=== PATIENT | female | born 1985 | race Caucasian/White ===

== ENCOUNTER 2018-05-02 07:56 | Inpatient (IN) | payer BC ==
[2018-05-02] MEDS ORDERED: Misoprostol TAB* 100 MCG PO ONE ×2 (10:08→14:58)
[2018-05-02] MEDS ORDERED: Misoprostol TAB* 100 MCG ONE (10:39)
--- NOTE | 2018-05-02 11:19 | HP ---
General Information - General Information Maternal Age: 32 Grav: 0 Para: 2 SAB: 0 IEA: 0 Estimated Due Date: 05/06/18 Determined By: LMP Gestational Age in Weeks and Days: 39 Weeks and 3 Days Maternal Blood Type and Rh: O Positive - Results this Serology/RPR Result: Non-Reactive Rubella Result: Immune HBsAg Result: Negative HIV Result: Negative GBS Culture Result: Negative Past Medical History Delivery History: See Records - primiparous, hx 2 1st trimester miscarriages Pertinent Past Medical History: Non-Contributory Pertinent Past Surgical History: See Records - D&C 2015, ACL repairs 2001, 2004 Pertinent Family History: Non-Contributory - Antepartal Records Antepartal Records: Reviewed, Uncomplicated - hx low-lying placenta, resolved Review of Systems Constitutional: Comfortable CV Complaint: No Respiratory: Shortness of Breath: No Gastrointestinal: No Nausea/Vomiting, Normal Bowel Movement Genitourinary: Leaking Fluid, No Dysuria, No Bleeding Musculoskeletal: No Complaint Neurological: No Headache, No Visual Changes Movement: Normal Exam Allergies/Adverse Reactions: Allergies No Known Allergies Allergy (Verified 05/02/18 08:43) Vital Signs 05/02/18 08:10 Temperature 98.5 F Pulse Rate 94 Respiratory 17 Rate Blood Pressure 131/71 (mmHg) O2 Sat by Pulse 99 Oximetry Lab Values - Entire Visit: Laboratory Tests 05/02/18 08:20 Vag Amniotic Fld Detect Positive - Measurements Height: 5 ft 8 in Weight: 104.326 kg Weight in lbs: 230.562182 Body Mass Index (BMI): 34.9 Pre- Weight: 88.451 kg Weight Gained This : 34.999 lbs and 0 ozs - Exam Abdomen: No Upper Quadrant Pain Breast: Breast Exam Deferred CVA: No CVA Tenderness Extremities: No Edema Heart: Normal Rhythm/Heart Sounds HEENT: No Significant Findings Lungs: Clear Bilaterally Rectal: Rectal Exam Deferred Reflexes: DTR 2+ Thyroid: No Thyromegaly - Abdominal Exam Abdomen Exam: Non-Tender, Fundal Height Consistent with Dates - Ultrasound/Biophysical Profile Ultrasound Status: Not Done Targeted Exam Findings See L&D Outpatient Visit Provider Note for Findings: N/A Estimated Weight: 8.5# Cervical Exam: 1cm Effacement: 50% Station: High Presenting Part: Vertex Membrane Status: SROM Amniotic Fluid Evaluation: Positive ROM Plus Bleeding/Discharge: None EFM Findings - External Monitor Findings Baseline Heart Rate: 130 External Monitor Findings: Accelerations Present, No Pattern of Variable or Late Decelerations, Variability Moderate, Baseline Stable Contractions: Irregular Assessment/Plan - Reason for Visit Reason for Visit: Pt reports SROM 05/01/18 at 2200, clear fluid. Minimal occasional ctx - Plan Plan: Cervical Ripening Plan Comment: Options discussed with pt, including oxytocin induction, oral Cytotec, expectant management. Counseled that since 12 hours has elapsed from time of SROM, recommend initiating some form of labor augmentation. Pt agrees to oral Cytotec. Will initiate at 50 mcg PO, reevaluate after 4 hours. - Date/Time of Admission Date of Admission: 05/02/18 Time of Admission: 09:38
[2018-05-02 21:25] LABS: ABS Basophils 0.1 10^3/ul (0-0.2); ABS Eosinophils 0.1 10^3/ul (0-0.6); ABS Lymphocytes 2.6 10^3/ul (1.0-4.8); ABS Monocytes 1.4 10^3/ul (0-0.8); ABS Neutrophils 9.5 10^3/ul (1.5-7.7); ABS Nucleated RBC 0 10^3/ul; Eosinophil % 0.7 % (0-6); Hematocrit 37 % (35-47); Hemoglobin 12.9 g/dl (12.0-16.0); Lymphocyte % 19.2 % (25-47); Mean Corpuscular HGB Conc 35 g/dl (31-36); Mean Corpuscular Hemoglobin 33 pg (27-31); Mean Corpuscular Volume 94 fL (80-97); Mean Platelet Volume 9.8 um3 (7.4-10.4); Nucleated Red Blood Cells % 0.1; Platelet Count 188 10^3/ul (150-450); Red Cell Distribution Width 12 % (10.5-15); White Blood Count 13.7 10^3/ul (3.5-10.8)
[2018-05-02] MEDS: Oxytocin in LR* 20 UNITS/1,000 ML BAG IVPB SCH (21:35)
[2018-05-03] MEDS ORDERED: Nalbuphine* 10 MG/ML 1 ML VIAL IV ONE (07:00)
[2018-05-03] MEDS ORDERED: Promethazine INJ(RESTRICTED)* 25 MG/ML 1 ML VIAL IV ONE (07:00)
[2018-05-03] MEDS ORDERED: Nalbuphine* 10 MG/ML 1 ML VIAL ONE (08:54)
[2018-05-03] MEDS ORDERED: Promethazine INJ(RESTRICTED)* 25 MG/ML 1 ML VIAL ONE (08:54)
[2018-05-03] MEDS ORDERED: Dibucaine 1% 28.35 GM TUBE PR PRN (12:00)
[2018-05-03] MEDS ORDERED: Acetaminophen TAB* 325 MG PO PRN (12:00)
[2018-05-03] MEDS ORDERED: RHO D Immune Globulin (HUMAN)* 300 MCG = 1,500 I.U. INJ IM ONE (12:00)
[2018-05-03] MEDS ORDERED: Witch Hazel PAD* JAR TOPICAL PRN (12:00)
[2018-05-03] MEDS ORDERED: Ibuprofen TAB* 600 MG PO PRN (12:00)
[2018-05-03] MEDS ORDERED: Glycerin ADULT SUPP PR PRN (12:00)
[2018-05-03] MEDS ORDERED: OXYTOCIN* 10 UNITS/ML 1 ML VIAL IM ONE (12:01)
[2018-05-03] MEDS ORDERED: Docusate CAP* 100 MG PO SCH (14:00)
[2018-05-03] MEDS ORDERED: OBEPIDURAL* 250 ML EPIDURAL ONE (17:24)
[2018-05-03] MEDS ORDERED: Phenylephrine IV* 40 MCG/ML 10 ML SYRINGE IV PUSH PRN ×2 (18:25)
[2018-05-03] MEDS ORDERED: Sodium Citrate/Citric Acid* 15 ML UDC PO PRN (18:25)
[2018-05-03] MEDS ORDERED: OBEPIDURAL* 250 ML EPIDURAL SCH (19:00)
[2018-05-04] MEDS ORDERED: ceFOXitin 2 GM IVPREMIX* 2 GM/50 ML BAG IVPB ONE (06:02)
[2018-05-04] MEDS ORDERED: Witch Hazel PAD* JAR TOPICAL PRN (06:03)
[2018-05-04] MEDS ORDERED: oxyCODONE/Acetamin 5/325 MG* TAB PO PRN ×4 (06:03→23:00)
[2018-05-04] MEDS ORDERED: Dibucaine 1% 28.35 GM TUBE PR PRN (06:03)
[2018-05-04] MEDS ORDERED: ceFOXitin 2 GM IVPREMIX* 2 GM/50 ML BAG ONE (06:05)
--- NOTE | 2018-05-04 06:11 | PN ---
Progress Note - Progress Note Date of Service: 05/04/18 - Note time 0415 SOAP: Previous notes in paper chart. 0415 Pushing with RN starting @ 0335 after patient had more rectal pressure, complete on exam by RN. FHT 145, T 99.1, BP 143/82 Pitocin @16, UCs q 2-3 Position changes encouraged, to squat and will continue pushing. 0520 Patient pushing effectively with most contractions, positioned on back. Minimal decent noted, plan to consult [facility] for possible assisted delivery. See MD note.
[2018-05-04] MEDS ORDERED: Morphine PF AMP (0.5MG/ML)* 5 MG/10 ML AMP ONE (06:38)
[2018-05-04] MEDS ORDERED: Lidocaine 2% PF* 10 ML AMP ONE ×3 (06:39→07:28)
[2018-05-04] MEDS ORDERED: Ketorolac INJ* 30 MG/ML 1 ML VIAL ONE (06:39)
[2018-05-04] MEDS ORDERED: OXYTOCIN* 10 UNITS/ML 1 ML VIAL ONE (06:39)
[2018-05-04] MEDS ORDERED: fentaNYL* 50 MCG/ML 2 ML VIAL (100 MCG VIAL) ONE (06:58)
[2018-05-04] MEDS ORDERED: Midazolam* 1 MG/ML 2 ML VIAL (2 MG) ONE (06:59)
[2018-05-04] MEDS ORDERED: Ibuprofen TAB* 600 MG PO SCH (07:00)
[2018-05-04] MEDS ORDERED: fentaNYL* 50 MCG/ML 2 ML VIAL (100 MCG VIAL) IV PRN (07:31)
[2018-05-04] MEDS ORDERED: Ondansetron INJ* 2 MG/ML VIAL IV PRN ×2 (07:31→07:33)
[2018-05-04] MEDS ORDERED: Naloxone* 0.4 MG/ML 1 ML VIAL IV PRN ×2 (07:31→07:33)
[2018-05-04] MEDS ORDERED: Acetaminophen IV 1GM/100ML * 1,000 MG/100 ML VIAL IVPB ONE (07:31)
[2018-05-04] MEDS ORDERED: Nalbuphine* 10 MG/ML 1 ML VIAL IV PRN (07:33)
[2018-05-04] MEDS: Simethicone TAB* 80 MG TAB.CHEW PO SCH ×4 (08:30→23:49)
[2018-05-04] MEDS: Oxytocin in LR* 20 UNITS/1,000 ML BAG IVPB SCH (08:35)
[2018-05-04] MEDS: Docusate CAP* 100 MG PO SCH ×4 (09:00→20:28)
[2018-05-04] MEDS ORDERED: Ferrous Gluconate TAB* 324 MG TAB PO SCH (09:00)
--- NOTE | 2018-05-04 10:23 | OP ---
DATE OF OPERATION: 05/04/18 - ROOM #105 DATE OF : 83 SURGEON: Deven Gentile MD. ASSISTANTS: Bryce Purcell CNM. ANESTHESIOLOGIST: Dr. Perez ANESTHESIA: Epidural. PRE-OP DIAGNOSIS: A 39 plus 6 weeks' gestation with arrest of descent. POST-OP DIAGNOSIS: A 39 plus 6 weeks' gestation with arrest of descent. OPERATIVE PROCEDURE: Primary low-transverse section. ESTIMATED BLOOD LOSS: 900 cc. URINE OUTPUT: 250 cc. IV FLUIDS: 1600 cc lactated Ringer's. MATERIALS TO LAB: Cord blood. INDICATIONS: This patient was a 32-year-old 3, para 0, who presented on 05/02/18 in the morning after spontaneous rupture of membranes the previous night. The patient had an unfavorable cervix and underwent cervical ripening and then received Pitocin for continued induction. She did receive an epidural for pain control last night. The patient reached fully dilated and pushed for over 2 hours. At that point, the head would not descend past +1 station and the patient was getting exhausted. On examination, the was felt to be quite large and was not felt to be a candidate for assisted vaginal delivery. After discussion, the patient desired to proceed with section. She was extensively counseled and consent was signed. FINDINGS: Normal-appearing uterus, fallopian tubes, and ovaries. Delivery was productive of a female weighing 8 pounds 15 ounces, Apgars of 8 and 9. Time delivery was 0654. COMPLICATIONS: None. DESCRIPTION OF PROCEDURE: The risks, benefits, and alternatives were described to the patient and informed consent was obtained. The patient was taken to the operating room with IV running where epidural anesthesia was induced and found to be adequate. The patient was prepped and draped in the normal sterile fashion in the dorsal supine position with a leftward tilt. A Pfannenstiel skin incision was made with a scalpel and this was carried down to the underlying fascia sharply. The fascia was then scored in the midline with the scalpel. The incision was extended using Ascencio scissors. The rectus muscles were dissected off the rectus fascia using blunt and sharp dissection. The rectus muscles were in the midline bluntly. The peritoneum was also entered bluntly. A bladder blade was placed. A bladder flap was created sharply using Metzenbaum scissors. A low transverse uterine incision was made with the scalpel. This was carried down to the amniotic cavity which was productive of clear fluid. The incision was extended with blunt traction. The head was elevated to the level of the incision without difficulty and delivered through the incision. With fundal pressure, the shoulders and body delivered without difficulty. The infant had excellent tone and cried immediately on delivery. The cord was doubly clamped and cut. The was then handed to the awaiting firewall administrator. Cord blood was collected. The placenta then delivered with manual extraction. The uterus was then exteriorized and cleared of all clots and debris. The uterine incision was reapproximated using 0 Polysorb in a running-locked fashion. A second layer of imbricating sutures of 0 Polysorb was also placed with good hemostasis. The posterior cul-de-sac was irrigated with saline. The uterus was then returned to the abdomen, and the incision was reinspected and noted to be hemostatic. The peritoneum was closed with 3-0 Polysorb in a running fashion. The fascia was closed with 0 Polysorb in a running fashion. Subcutaneous tissues were irrigated and then reapproximated using 3-0 Vicryl in interrupted sutures. The skin was then closed with 4-0 Monocryl in a subcuticular stitch. Mastisol and Steri-Strips were placed over the incision which was then covered with a sterile bandage. The patient tolerated the procedure well. Sponge, lap, and needle counts were correct x2. [id number]/[facility] #: [id number] MTDD
[2018-05-04] MEDS: Ketorolac INJ* 30 MG/ML 1 ML VIAL IV PRN ×2 (13:24→20:28)
[2018-05-04] MEDS: oxyCODONE/Acetamin 5/325 MG* TAB PO PRN ×2 (17:27→22:37)
[2018-05-05] MEDS: Ibuprofen TAB* 600 MG PO SCH ×4 (02:11→20:55)
[2018-05-05] MEDS: Ketorolac INJ* 30 MG/ML 1 ML VIAL IV PRN (02:27)
[2018-05-05] MEDS: oxyCODONE/Acetamin 5/325 MG* TAB PO PRN ×5 (02:32→20:56)
[2018-05-05 07:30] LABS: ABS Basophils 0 10^3/ul (0-0.2); ABS Eosinophils 0.1 10^3/ul (0-0.6); ABS Lymphocytes 1.6 10^3/ul (1.0-4.8); ABS Monocytes 1.1 10^3/ul (0-0.8); ABS Neutrophils 9.7 10^3/ul (1.5-7.7); ABS Nucleated RBC 0 10^3/ul; Eosinophil % 0.5 % (0-6); Hematocrit 27 % (35-47); Hemoglobin 9.5 g/dl (12.0-16.0); Lymphocyte % 12.6 % (25-47); Mean Corpuscular HGB Conc 35 g/dl (31-36); Mean Corpuscular Hemoglobin 33 pg (27-31); Mean Corpuscular Volume 94 fL (80-97); Mean Platelet Volume 9.5 um3 (7.4-10.4); Nucleated Red Blood Cells % 0; Platelet Count 144 10^3/ul (150-450); Red Blood Count 2.86 10^6/ul (4.00-5.40); Red Cell Distribution Width 12 % (10.5-15); White Blood Count 12.5 10^3/ul (3.5-10.8)
[2018-05-05] MEDS: Docusate CAP* 100 MG PO SCH ×3 (08:56→20:55)
[2018-05-05] MEDS: Simethicone TAB* 80 MG TAB.CHEW PO SCH ×3 (08:56→20:55)
[2018-05-05] MEDS: Ferrous Gluconate TAB* 324 MG TAB PO SCH ×2 (08:56→20:55)
--- NOTE | 2018-05-05 20:37 | PTEDU ---
Patient Name: HILDA MENDOZA HILDA MENDOZA selected video: Never Ever Shake a Baby to view on 05/05/2018 at 8:36:15 PM from [id number]
--- NOTE | 2018-05-05 20:48 | PTEDU ---
Patient Name: HILDA MENDOZA HILDA MENDOZA selected video: BBOB: Nurturing Your Gorgeous &Growing Baby by to jerrell cruz on 05/05/2018 at 8:47:42 PM from [id number]
[2018-05-06] MEDS: Ibuprofen TAB* 600 MG PO SCH ×4 (03:17→23:43)
[2018-05-06] MEDS: oxyCODONE/Acetamin 5/325 MG* TAB PO PRN ×3 (03:18→15:11)
[2018-05-06] MEDS: Simethicone TAB* 80 MG TAB.CHEW PO SCH ×3 (09:59→23:44)
[2018-05-06] MEDS: Ferrous Gluconate TAB* 324 MG TAB PO SCH ×2 (09:59→23:44)
[2018-05-06] MEDS: Docusate CAP* 100 MG PO SCH ×3 (09:59→23:44)
[2018-05-07] MEDS: oxyCODONE/Acetamin 5/325 MG* TAB PO PRN (02:55)
[2018-05-07] MEDS: Ibuprofen TAB* 600 MG PO SCH (05:49)
[2018-05-07 07:45] VITALS: BP 126/87
== END 2018-05-07 10:33 | disposition home or self-care (01) | DRG 540 ==
LOC: MCHOBOUT 07:56 → MCHOB 09:40
PROVIDERS: ADMIT Midwife; ATTEND Midwife
PROC: 10D00Z1 Extraction of Products of Conception, Low, Open Approach (ICD-10-PCS; 2018-05-04)
PROC: 4A1HXCZ Monitoring of Products of Conception, Cardiac Rate, External Approach (ICD-10-PCS; 2018-05-04)
PROC: 10907ZC Drainage of Amniotic Fluid, Therapeutic from Products of Conception, Via Natural or Artificial Opening (ICD-10-PCS; 2018-05-04)
PROC: 3E033VJ Introduction of Other Hormone into Peripheral Vein, Percutaneous Approach (ICD-10-PCS; principal; 2018-05-04 06:25)
DX: O62.1 Secondary uterine inertia (principal); Z37.0 Single live birth; Z3A.39 39 weeks gestation of pregnancy; O90.81 Anemia of the puerperium; O75.81 Maternal exhaustion complicating labor and delivery
CPT/HCPCS: 36415; 84112; 85025; 86850; 86900; 86901; A9270-GY; J0694; J1885; J2001; J2250; J2300; J2550; J2590; J3010; S0191

== ENCOUNTER 2020-05-10 06:01 | Inpatient (IN) ==
[2020-05-10] MEDS ORDERED: ceFOXitin 2 GM IVPREMIX 2 GM/50 ML BAG IVPB ONE (06:30)
[2020-05-10 07:07] LABS: Urine Benzodiazepine Screen None Detected (None Detect); Urine Opiates Screen None Detected (None Detect)
[2020-05-10] MEDS ORDERED: Morphine PF AMP (0.5MG/ML) 5 MG/10 ML AMP ONE (07:42)
[2020-05-10] MEDS ORDERED: Oxytocin 10 UNITS/ML 1 ML VIAL ONE (07:45)
[2020-05-10] MEDS ORDERED: EPHEDrine (Pressors) 50 MG/ML VIAL ONE (08:33)
[2020-05-10] MEDS ORDERED: Phenylephrine 40 mcg/mL 10mL (400mcg) SYRINGE ONE (08:33)
[2020-05-10] MEDS ORDERED: Ondansetron 4 mg VIAL 2 MG/ML 2 ml VIAL ONE (08:33)
[2020-05-10] MEDS ORDERED: HYDROmorphone 1 MG/1 ML SYRINGE IV PRN (08:37)
[2020-05-10] MEDS ORDERED: Naloxone 0.4 mg VIAL 0.4 mg/ml 1 ml VIAL IV PRN ×2 (08:37→08:38)
[2020-05-10] MEDS ORDERED: Acetaminophen IV 1 GM/100ML 1,000 MG/100 ML VIAL IVPB ONE (08:37)
[2020-05-10] MEDS ORDERED: DiMENhydriNATE IV 50 mg/ml 1 ml VIAL IV PUSH PRN (08:37)
[2020-05-10] MEDS ORDERED: Ondansetron 4 mg VIAL 2 MG/ML 2 ml VIAL IV PRN (08:38)
[2020-05-10] MEDS ORDERED: diPHENhydraMINE IV 50 MG/ML 1 ml VIAL (BENADRYL) IV PRN (08:38)
[2020-05-10] MEDS ORDERED: oxyCODONE/Acetamin 5/325 mg TAB PO PRN (08:40)
[2020-05-10] MEDS ORDERED: Witch Hazel PAD JAR TOPICAL PRN (09:05)
[2020-05-10] MEDS ORDERED: Lactated Ringers 1000 ml BAG 1,000 ML IV SCH (10:00)
[2020-05-10] MEDS ORDERED: Methylergonovine 0.2 mg AMPULE 1 ml AMP ONE (10:36)
[2020-05-10] MEDS ORDERED: Ammonia Inhalant 1 EA AMP ONE (16:22)
[2020-05-11 07:05] LABS: ABS Eosinophils 0.1 10^3/ul (0-0.6); ABS Lymphocytes 1.9 10^3/ul (1.0-4.8); ABS Monocytes 1.1 10^3/ul (0-0.8); ABS Neutrophils 10.8 10^3/ul (1.5-7.7); Eosinophil % 0.5 %; Hematocrit 34 % (35-47); Hemoglobin 11.9 g/dL (12.0-16.0); Lymphocyte % 13.6 %; Mean Corpuscular HGB Conc 35 g/dL (31-36); Mean Corpuscular Hemoglobin 34 pg (27-31); Mean Corpuscular Volume 96 fL (80-97); Mean Platelet Volume 9.3 fL (7.4-10.4); Nucleated Red Blood Cells % 0.1; Platelet Count 173 10^3/uL (150-450); Red Blood Count 3.51 10^6 /uL (3.70-4.87); Red Cell Distribution Width 12 % (10-15); White Blood Count 13.9 10^3/uL (3.5-10.8)
[2020-05-12 07:45] VITALS: BP 122/70
== END 2020-05-12 11:25 | disposition home or self-care (01) | DRG 540 ==
LOC: MCHOB 06:01
PROVIDERS: ADMIT Obstetrics & Gynecology; ATTEND Obstetrics & Gynecology

== ENCOUNTER 2022-06-18 06:15 | Inpatient (IN) ==
[~2022-06-18 06:15] MED LIST: Buffered Lidocaine 1% SYRIN 1 ml INTRADERM ONE; Lactated Ringers 1000 ml BAG 1,000 ML IV SCH
[2022-06-18] MEDS ORDERED: ceFOXitin 2 GM PREMIX 50 ML IVPB ONE (07:00)
[2022-06-18 07:03] LABS: ABS Eosinophils 0.1 10^3/ul (0-0.6); ABS Lymphocytes 2.1 10^3/ul (1.0-4.8); ABS Monocytes 0.9 10^3/ul (0-0.8); ABS Neutrophils 7.7 10^3/ul (1.5-7.7); Eosinophil % 1.2 %; Hematocrit 38 % (35-47); Hemoglobin 13.4 g/dL (12.0-16.0); Mean Corpuscular HGB Conc 35 g/dL (31-36); Mean Corpuscular Hemoglobin 33 pg (27-31); Mean Corpuscular Volume 94 fL (80-97); Mean Platelet Volume 9.6 fL (7.4-10.4); Platelet Count 167 10^3/uL (150-450); Red Blood Count 4.04 10^6 /uL (3.70-4.87); Red Cell Distribution Width 13 % (10-15); White Blood Count 10.8 10^3/uL (3.5-10.8)
[2022-06-18] MEDS ORDERED: Morphine PF AMP (0.5MG/ML) 5 MG/10 ML AMP ONE (07:41)
[2022-06-18] MEDS ORDERED: fentaNYL 100 mcg/2 ml 50 MCG/ML VIAL ONE (07:42)
[2022-06-18] MEDS ORDERED: Sterile Water for Inj 10 ML ONE (08:06)
[2022-06-18] MEDS ORDERED: Ondansetron 4 mg VIAL 2 MG/ML 2 ml VIAL IV PRN (08:07)
[2022-06-18] MEDS ORDERED: Naloxone 0.4 mg VIAL 0.4 mg/ml 1 ml VIAL IV PRN (08:07)
[2022-06-18] MEDS ORDERED: Phenylephrine 40 mcg/mL 10mL (400mcg) SYRINGE ONE (08:22)
[2022-06-18] MEDS ORDERED: Ondansetron 4 mg VIAL 2 MG/ML 2 ml VIAL ONE (08:34)
[2022-06-18] MEDS ORDERED: Dexamethasone IV 4 MG/ML VIAL 1 ml VIAL ONE (08:34)
[2022-06-18] MEDS ORDERED: Acetaminophen IV 1 GM/100ML 1,000 MG/100 ML BAG IV ONE (08:58)
[2022-06-18] MEDS ORDERED: Oxytocin 10 UNITS/ML 1 ML VIAL ONE (09:08)
[2022-06-18] MEDS ORDERED: Glycerin ADULT 2.4 gm SUPP PR PRN (09:34)
[2022-06-18] MEDS ORDERED: Witch Hazel PAD JAR TOPICAL PRN (09:34)
[2022-06-18 09:45] LABS: Urine Benzodiazepine Screen None Detected (None Detect); Urine Opiates Screen None Detected (None Detect)
[2022-06-18] MEDS ORDERED: Oxytocin in LR 20,000 MILLI.UNIT/1,000 ML BAG IV SCH (09:45)
[2022-06-18] MEDS ORDERED: Lactated Ringers 1000 ml BAG 1,000 ML IV SCH (10:00)
[2022-06-19 06:27] LABS: ABS Eosinophils 0.1 10^3/ul (0-0.6); ABS Lymphocytes 1.6 10^3/ul (1.0-4.8); ABS Monocytes 1.1 10^3/ul (0-0.8); ABS Neutrophils 11.4 10^3/ul (1.5-7.7); Eosinophil % 0.6 %; Hematocrit 34 % (35-47); Hemoglobin 11.9 g/dL (12.0-16.0); Lymphocyte % 11.5 %; Mean Corpuscular HGB Conc 35 g/dL (31-36); Mean Corpuscular Hemoglobin 33 pg (27-31); Mean Corpuscular Volume 96 fL (80-97); Mean Platelet Volume 9.7 fL (7.4-10.4); Platelet Count 158 10^3/uL (150-450); Red Blood Count 3.58 10^6 /uL (3.70-4.87); Red Cell Distribution Width 13 % (10-15); White Blood Count 14.2 10^3/uL (3.5-10.8)
[2022-06-19 08:15] LABS: Urine Appearance Clear; Urine Bilirubin Negative (Negative); Urine Blood Negative (Negative); Urine Color Yellow; Urine Glucose Negative (Negative); Urine Ketones Negative (Negative); Urine Nitrite Negative (Negative); Urine Protein Negative (Negative); Urine Specific Gravity 1.015 (1.005-1.030); Urine Urobilinogen 0.2 (Negative) (Negative)
[2022-06-20 08:49] VITALS: BP 115/67
[2022-06-20] MEDS ORDERED: LoraTADine 10 mg TAB (NF) PO ONE (10:40)
== END 2022-06-20 17:14 | disposition home or self-care (01) | DRG 540 ==
LOC: MCHOB 06:15
PROVIDERS: ADMIT Obstetrics & Gynecology; ATTEND Obstetrics & Gynecology